=== PATIENT | female | born 1950 | race Caucasian/White ===

== ENCOUNTER 2022-08-14 15:12 | Emergency (ER) | payer OTHER ==
[~2022-08-14] VITALS: Ht 167.6 cm; Wt 72.6 kg
--- NOTE | 2022-08-14 17:08 | NUR ---
Patient to ER bed 7 to gown for evaluation. Side rails up. Report given to [facility]IO[facility].
--- NOTE | 2022-08-14 17:08 | NUR ---
Pt bib family from home CC head injury from mechanical fall yesterday evening.. Pt states was assisting a woman up and was released to a fall to the ground pressurizing tailbone and hitting cranium. Redness and swelling to cranium. Pt states no LOC. slightly nauseated with 1 episode of vomiting. aaox3, skin intact, NAD, VSS, denies SOB, ZANDRA.
--- NOTE | 2022-08-14 17:10 | NUR ---
ER at bedside examining patient.
[2022-08-14] MEDS ORDERED: ONDANSETRON 4 MG ODT TAB PO ONE (17:15)
[2022-08-14] MEDS ORDERED: IBUP-1969 PO (17:16)
[2022-08-14] MEDS ORDERED: ONDA-8 TL (17:16)
--- NOTE | 2022-08-14 17:26 | NUR ---
Patient given written and verbal discharge instructions and verbalizes understanding. ER MD discussed with patient the results and treatment provided. Patient in stable condition. ID arm band removed. IV catheter removed intact and dressing applied, no active bleeding. Rx of zofran and ibuprofen given. Patient educated on pain management and to follow up with PMD. Opportunity for questions provided and answered. Medication side effect fact sheet provided.
[2022-08-14 18:11] VITALS: BP_SYST 147
== END 2022-08-14 17:26 | disposition home or self-care (01) ==
LOC: SED 15:12
DX: S39.012A Strain of muscle, fascia and tendon of lower back, initial encounter (principal); S00.03XA Contusion of scalp, initial encounter; R11.10 Vomiting, unspecified; Z79.899 Other long term (current) drug therapy; W01.198A Fall on same level from slipping, tripping and stumbling with subsequent striking against other object, initial encounter; Y93.89 Activity, other specified; Y92.89 Other specified places as the place of occurrence of the external cause; Y99.8 Other external cause status
CPT/HCPCS: 70450-TC; 72100-TC; 76376; 99284